=== PATIENT | female | born 1940 | race Caucasian/White ===

== ENCOUNTER 2018-06-20 13:34 | Outpatient (CLI) | payer MEDICARE ==
[2018-06-20 14:01] LABS: INR-International Normal Ratio 1.7; Prothrombin Time 20.1 SEC (12.0-14.7)
== END 2018-06-20 13:35 | disposition home or self-care (01) ==
LOC: MADLAB 13:34
PROVIDERS: ATTEND Internal Medicine
DX: Z51.81 Encounter for therapeutic drug level monitoring (principal); Z79.899 Other long term (current) drug therapy
CPT/HCPCS: 85610